=== PATIENT | female | born 1970 | race Caucasian/White ===

== ENCOUNTER 2018-02-07 17:55 | Emergency (ER) | payer MEDICARE, OTHER ==
[2018-02-07 18:30] VITALS: RESP 18; TEMP 97.9
--- NOTE | 2018-02-07 19:11 | ED ---
General Adult HPI - General Chief complaint: Recheck/Abnormal Lab/Rx Stated complaint: Mental Health Time Seen by Provider: 02/07/18 18:12 Source: patient, RN notes reviewed Mode of arrival: EMS Limitations: no limitations - History of Present Illness Initial comments: Patient 47-year-old female presented emergency room today by EMS, the chief complaint of a bedbug infestation. Patient states she was at home last night noticed that there was bones around the house. States she's renting a room from a another person. She states that someone else in the house clean some of the events and strips of the dirt and now there is a bunch of bugs. She states she does have some bright all over body. She was crawling into her mouth. She states that she has some bites underneath her tongue. Patient states that she' s not slept the last 3 days. She does admit that she did use meth and was drinking. She states she's been under a lot of stress lately. She states that she does suffer from posttraumatic stress disorder. Patient states that another person in the house left because of bed bugs. Patient states she called EMS because she didn't know how he was. She states they do not look around the house and did not see the bugs. Patient denies any homicidal, suicidal thoughts or plans. She does admit that she has a counselor through [facility]. Patient denies any other complaints. Patient denies any recent fever, chills, shortness of breath, chest pain, back pain, abdominal pain, nausea or vomiting, numbness or tingling, dysuria or hematuria, constipation or diarrhea, headaches or visual changes, or any other complaints. - Related Data Home Medications Medication Instructions Recorded Confirmed Acetaminophen [Tylenol Extra 1,000 mg PO BID PRN 02/07/18 02/07/18 Strength] Cholecalciferol [Vitamin D3] 1,000 unit PO DAILY 02/07/18 02/07/18 Fluticasone Propionate [Flonase 2 spray EA NOSTRIL DAILY PRN 02/07/18 02/07/18 Allergy Relief] Melatonin 3 mg PO HS PRN 02/07/18 02/07/18 Soy Isofla/Blk Cohosh/Mag Bark 155 mg PO HS 02/07/18 02/07/18 [Estroven 155 mg Capsule] diphenhydrAMINE HCL [Benadryl] 25 mg PO HS PRN 02/07/18 02/07/18 Allergies Allergy/AdvReac Type Severity Reaction Status Date / Time No Known Allergies Allergy Verified 02/07/18 18:42 Review of Systems ROS Statement: Those systems with pertinent positive or pertinent negative responses have been documented in the HPI. ROS Other: All systems not noted in ROS Statement are negative. Past Medical History Additional Past Medical History / Comment(s): ptsd, panic disorder anxiety History of Any Multi-Drug Resistant Organisms: MRSA MDRO Source:: 2013 Past Surgical History: Hernia Repair, Tonsillectomy, Tubal Ligation Past Psychological History: No Psychological Hx Reported Smoking Status: Current every day smoker Past Alcohol Use History: Occasional Past Drug Use History: Methamphetamine General Exam - General Exam Comments Initial Comments: General: The patient is awake and alert. Anxious. Eye: Pupils are equal, round and reactive to light, extra-ocular movements are intact. No nystagmus. There is normal conjunctiva bilaterally. No signs of icterus. Ears, nose, mouth and throat: There are moist mucous membranes and no oral lesions. Neck: The neck is supple, there is no tenderness or JVD. Cardiovascular: There is a regular rate and rhythm. No murmur, rub or gallop is appreciated. Respiratory: Lungs are clear to auscultation, respirations are non-labored, breath sounds are equal. No wheezes, stridor, rales, or rhonchi. Musculoskeletal: Normal ROM, no tenderness. Strength 5/5. Sensation intact. Neurological: A&O x 3. CN II-XII intact, There are no obvious motor or sensory deficits. Coordination appears grossly intact. Speech is normal. Skin: Skin is warm and dry and no rashes or lesions are noted. Psychiatric: Cooperative. Limitations: no limitations Course Vital Signs 02/07/18 18:22 Temperature 97.9 F Pulse Rate 98 Respiratory 18 Rate Blood Pressure 119/70 O2 Sat by Pulse 98 Oximetry Medical Decision Making - Medical Decision Making Patient seen here in the emergency room. She denies any suicidal or homicidal thoughts or plans. She does not that she believes that there are bugs in her house. Per EMS and they did look around this and also sprinkling did not see any evidence of this. Patient does not have any noticeable bite samano. Patient does not that she's not been sleeping well. She does admit to post medic stress disorder. She does admit that she used methadone recently which she usually does not do and also was drinking. She states she has not been drinking lately. At this time patient is alert and oriented. Shows capacity for decision making. It was discussed about seeing psych services here in the ER for an evaluation and the recommendation. Patient adamantly states she does not want to see [facility] here in [place]. She states she does have a counselor through [facility] that she would rather follow up with. She states she does not want to have to get changed into the gown. She does not want to do a breathalyzer test. She states that she does not want to go through all these "legal forms". Patient states her [id number] will be coming to pick her up. At this time patient is advised to follow-up with her counselor tomorrow. Advised that she can return here to the emergency room symptoms increase worsen or for any concerns time. Patient states understanding and is in agreement with the plan. Disposition Clinical Impression: Delusion of infestation Disposition: HOME SELF-CARE Condition: Good Instructions: Insomnia (ED) Additional Instructions: Please follow-up with her counselor tomorrow as discussed. Please return to emergency room if any symptoms increase worsen or for any other concerns. Is patient prescribed a controlled substance at d/c from ED?: No Referrals: None,Stated [Primary Care Provider] - 1-2 days Time of Disposition: 19:11
[2018-02-07 19:25] VITALS: BP 120/58; PULSE 105
== END 2018-02-07 19:23 | disposition home or self-care (01) ==
LOC: EC 17:55
DX: F22 Delusional disorders (principal); F17.200 Nicotine dependence, unspecified, uncomplicated; Z86.14 Personal history of Methicillin resistant Staphylococcus aureus infection; Z79.899 Other long term (current) drug therapy
CPT/HCPCS: 99283

== ENCOUNTER 2018-06-19 14:37 | Emergency (ER) | payer MEDICARE, OTHER ==
[2018-06-19 14:53] VITALS: BP 110/67; PULSE 104; RESP 16; TEMP 98.1
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
== END 2018-06-19 15:25 | disposition home or self-care (01) ==
LOC: EC 14:37
DX: L01.00 Impetigo, unspecified (principal); F17.200 Nicotine dependence, unspecified, uncomplicated; Z86.14 Personal history of Methicillin resistant Staphylococcus aureus infection
CPT/HCPCS: 99283